=== PATIENT | female | born 1940 | race Caucasian/White ===

== ENCOUNTER 2017-01-10 12:55 | Inpatient (IN) | payer MEDICARE ==
[~2017-01-10] VITALS: Ht 157.5 cm; Wt 75.6 kg
[~2017-01-10 12:55] MED LIST: SODIUM CHLORIDE 0.9% 1,000 ML IV ONE
[2017-01-10] MEDS ORDERED: PLEASE ENTER ALLERGIES MC SCH ×2 (13:00)
[2017-01-10] MEDS ORDERED: SODIUM CHLORIDE FLUSH 10ML SYR IVF ONE (13:00)
[2017-01-10] MEDS ORDERED: PLEASE ENTER HEIGHT AND WEIGHT MC SCH (13:00)
[2017-01-10] MEDS ORDERED: ONDANSETRON 2MG/ML, 2ML IVPush ONE ×2 (13:00→14:30)
[2017-01-10] MEDS ORDERED: HYDROmorphone 1 MG/ML, 1ML ONE ×5 (13:01→18:11)
[2017-01-10] MEDS ORDERED: ONDANSETRON 2MG/ML, 2ML ONE ×3 (13:01→20:19)
[2017-01-10] MEDS: HYDROmorphone 1 MG/ML, 1ML IVPush PRN ×4 (13:07→17:34)
[2017-01-10] MEDS ORDERED: HYDR25TA6 PO (13:16)
[2017-01-10] MEDS ORDERED: RANI300C PO (13:16)
[2017-01-10] MEDS ORDERED: SULI150T PO (13:16)
[2017-01-10] MEDS ORDERED: SIMV20TA3 PO (13:16)
[2017-01-10] MEDS ORDERED: NEBI20TA2 PO (13:16)
[2017-01-10 13:24] LABS: ASPARTATE AMINO TRANSFERASE 16 U/L (15-37); BLOOD UREA NITROGEN 12 mg/dL (7-18)
[2017-01-10] MEDS ORDERED: OMNIPAQUE 350 MG/ML, 100ML BOTTLE ONE (14:08)
[2017-01-10] MEDS ORDERED: CEFOTETAN PMX 1GM/50ML 50 ML ONE (14:17)
[2017-01-10] MEDS ORDERED: CEFOTETAN PMX 1GM/50ML 50 ML IV ONE (14:30)
[2017-01-10] MEDS ORDERED: POTASSIUM CHLORIDE 20 MEQ in D5%-0.45% NACL 1,000 ML IV ONE (14:39)
[2017-01-10] MEDS ORDERED: METRONIDAZOLE PMX 500MG/100ML 100 ML IV ONE (15:00)
[2017-01-10] MEDS ORDERED: MORPHINE SULFATE 4 MG/ML, 1ML IVPush PRN (15:00)
[2017-01-10] MEDS ORDERED: METRONIDAZOLE PMX 500MG/100ML 100 ML ONE (15:12)
[2017-01-10 17:05] LABS: PATH.CAST-FLAG NOT PRESENT; SPERM-FLAG NOT PRESENT; SRC-FLAG NOT PRESENT; XTAL-FLAG NOT PRESENT; YLC-FLAG NOT PRESENT
[2017-01-10] MEDS ORDERED: HYDROmorphone 1 MG/ML, 1ML IVPush ONE (17:30)
[2017-01-10] MEDS ORDERED: HYDROmorphone 1 MG/ML, 1ML IV ONE (20:00)
[2017-01-10] MEDS ORDERED: BUPIVACAINE/PF 0.5% ONE (20:04)
[2017-01-10] MEDS ORDERED: CEFOTETAN 1 GM ONE (20:19)
[2017-01-10] MEDS ORDERED: DEXAMETHASONE 4 MG/ML, 1ML ONE (20:19)
[2017-01-10] MEDS ORDERED: SUCCINYLCHOLINE 20 MG/ML, 10ML ONE (20:19)
[2017-01-10] MEDS ORDERED: PROPOFOL 10 MG/ML, 20ML ONE (20:19)
[2017-01-10] MEDS ORDERED: LABETALOL 5MG/ML, 20ML ONE (20:19)
[2017-01-10] MEDS ORDERED: FENTANYL PF 100 MCG/2ML ONE (20:25)
[2017-01-10] MEDS ORDERED: BUPIVACAINE/PF 0.5% INJ ONE (20:38)
[2017-01-10] MEDS ORDERED: hydrALAzine 20 MG/ML, 1ML IV PRN (21:00)
[2017-01-10] MEDS ORDERED: HYDROmorphone 1 MG/ML, 1ML IV PRN (21:00)
[2017-01-10] MEDS ORDERED: FENTANYL PF 100 MCG/2ML IV PRN (21:00)
[2017-01-10] MEDS ORDERED: SIMVASTATIN 20 MG TABLET PO SCH (21:00)
[2017-01-10] MEDS ORDERED: FAMOTIDINE 40 MG TABLET PO SCH (21:00)
[2017-01-10] MEDS ORDERED: LABETALOL 5MG/ML, 20ML IV PRN (21:00)
[2017-01-10] MEDS ORDERED: OXYcodone 5 MG/5 ML ORAL.SOL UDC PO PRN (21:00)
[2017-01-10] MEDS ORDERED: ONDANSETRON 2MG/ML, 2ML IVPush PRN ×2 (21:00→22:30)
[2017-01-10] MEDS ORDERED: DIPHENHYDRAMINE 25 MG CAPSULE PO PRN (22:30)
[2017-01-10] MEDS ORDERED: METRONIDAZOLE PMX 500MG/100ML 100 ML IV SCH (22:30)
[2017-01-10] MEDS ORDERED: LORazepam 1MG TABLET PO PRN (22:30)
[2017-01-10] MEDS ORDERED: DIPHENHYDRAMINE 50 MG/ML, 1ML IV PRN (22:30)
[2017-01-10] MEDS ORDERED: POTASSIUM CHLORIDE 20 MEQ in D5%-0.45% NACL 1,000 ML IV SCH (22:30)
[2017-01-10] MEDS ORDERED: LORazepam 2 MG/ML, 1ML IV PRN (22:30)
[2017-01-10] MEDS ORDERED: PROPOFOL 100 ML IV ONE (22:44)
[2017-01-10] MEDS ORDERED: PIPERACILLIN/TAZO 3.375 GM in SODIUM CHLORIDE 0.9% 50 ML IV SCH (23:00)
[2017-01-10] MEDS ORDERED: PROPOFOL 100 ML IV PRN (23:22)
[2017-01-10] MEDS ORDERED: LIDOCAINE-MPF 1%, 2ML ENDO PRN (23:30)
[2017-01-10] MEDS ORDERED: PHARMACY MAY ADJ FOR RENAL FX MC SCH (23:30)
[2017-01-10] MEDS: NS + 20MEQ KCL 1,000 ML IV SCH (23:36)
[2017-01-10 23:52] LABS: ABG COLLECTION SITE LEFT RADIAL; COLLATERAL CIRCULATION TESTING NORMAL
[2017-01-10] MEDS: NOREPINEPHRINE 4 MG in SODIUM CHLORIDE 0.9% 246 ML IV PRN (23:53)
[2017-01-11] MEDS: PIPERACILLIN/TAZO 3.375 GM in SODIUM CHLORIDE 0.9% 50 ML IV SCH ×5 (00:24→22:16)
[2017-01-11 04:00] VITALS: BP 90/51
[2017-01-11] MEDS: FENTANYL PF 100 MCG/2ML IVPush PRN ×5 (04:14→15:04)
[2017-01-11 04:29] LABS: ABG COLLECTION SITE RIGHT BRACHIAL
[2017-01-11 05:31] LABS: BLOOD UREA NITROGEN 14 mg/dL (7-18)
[2017-01-11 05:35] LABS: ASPARTATE AMINO TRANSFERASE 14 U/L (15-37)
[2017-01-11] MEDS: NEBIVOLOL HCL 5 MG TABLET PO SCH (06:09)
[2017-01-11] MEDS: NOREPINEPHRINE 4 MG in SODIUM CHLORIDE 0.9% 246 ML IV PRN ×3 (06:44→20:53)
[2017-01-11] MEDS ORDERED: MAGNESIUM SULFATE PMX 4GM/100M 100 ML IV ONE (07:00)
[2017-01-11] MEDS ORDERED: HYDROCHLOROTHIAZIDE 25 MG TABLET PO SCH (09:00)
[2017-01-11] MEDS ORDERED: POTASSIUM CHLORIDE 20 MEQ TAB.ER.PRT PO SCH (09:00)
[2017-01-11] MEDS: SULINDAC 150 MG PO SCH ×2 (10:20→19:48)
[2017-01-11] MEDS: FAMOTIDINE 20 MG/2 ML IVPush SCH ×2 (10:21→19:48)
[2017-01-11] MEDS: POTASSIUM CHLORIDE 10% 40 MEQ/30 ML UDC PO SCH ×2 (10:39→19:48)
[2017-01-11] MEDS: NS + 20MEQ KCL 1,000 ML IV SCH ×2 (12:47→22:16)
[2017-01-11] MEDS: ENOXAPARIN 40 MG/0.4 ML SQ SCH (12:50)
[2017-01-11] MEDS: OXYcodone 5 MG/5 ML ORAL.SOL UDC PO PRN ×2 (15:04→19:48)
[2017-01-12] MEDS: FENTANYL PF 100 MCG/2ML IVPush PRN (00:14)
[2017-01-12] MEDS ORDERED: SODIUM CHLORIDE 0.9% 1,000ML IVBOLUS ONE (01:30)
[2017-01-12] MEDS: PIPERACILLIN/TAZO 3.375 GM in SODIUM CHLORIDE 0.9% 50 ML IV SCH ×4 (03:57→22:32)
[2017-01-12 04:00] VITALS: BP 116/58
[2017-01-12] MEDS: NOREPINEPHRINE 4 MG in SODIUM CHLORIDE 0.9% 246 ML IV PRN (04:07)
[2017-01-12 04:39] LABS: ABG COLLECTION SITE RIGHT RADIAL; COLLATERAL CIRCULATION TESTING NORMAL
[2017-01-12] MEDS: NS + 20MEQ KCL 1,000 ML IV SCH ×4 (05:13→22:33)
[2017-01-12] MEDS: NEBIVOLOL HCL 5 MG TABLET PO SCH (05:13)
[2017-01-12 05:22] LABS: BLOOD UREA NITROGEN 20 mg/dL (7-18)
[2017-01-12] MEDS: OXYcodone 5 MG/5 ML ORAL.SOL UDC PO PRN ×2 (05:25→14:22)
[2017-01-12 06:12] LABS: DIFF TOTAL CELLS COUNTED 100 CELL DIFF
[2017-01-12 06:18] LABS: VERIFY COUNTS? YES
[2017-01-12] MEDS: SULINDAC 150 MG PO SCH ×2 (10:59→20:43)
[2017-01-12] MEDS: ENOXAPARIN 40 MG/0.4 ML SQ SCH (10:59)
[2017-01-12] MEDS: FAMOTIDINE 20 MG/2 ML IVPush SCH ×2 (11:00→20:42)
[2017-01-13 03:21] LABS: ABG COLLECTION SITE RIGHT RADIAL
[2017-01-13 03:22] LABS: COLLATERAL CIRCULATION TESTING NORMAL
[2017-01-13] MEDS: PIPERACILLIN/TAZO 3.375 GM in SODIUM CHLORIDE 0.9% 50 ML IV SCH ×3 (04:34→17:23)
[2017-01-13 04:44] VITALS: BP 105/70
[2017-01-13] MEDS: NEBIVOLOL HCL 5 MG TABLET PO SCH (05:44)
[2017-01-13] MEDS: NS + 20MEQ KCL 1,000 ML IV SCH (06:45)
[2017-01-13 07:40] LABS: BLOOD UREA NITROGEN 24 mg/dL (7-18)
[2017-01-13 07:59] LABS: DIFF TOTAL CELLS COUNTED 100 CELL DIFF
[2017-01-13 08:06] LABS: MONOS WITH VACUOLES 1+; VERIFY COUNTS? YES
[2017-01-13] MEDS ORDERED: ALBUMIN HUMAN 25% 100 ML IV ONE (09:00)
[2017-01-13] MEDS: SULINDAC 150 MG PO SCH ×2 (09:20→21:00)
[2017-01-13] MEDS ORDERED: FUROSEMIDE 20 MG/2 ML IV ONE (10:30)
[2017-01-13] MEDS: OXYcodone 5 MG/5 ML ORAL.SOL UDC PO PRN ×3 (10:36→22:18)
[2017-01-13 13:32] VITALS: BP 129/81
[2017-01-13] MEDS: ENOXAPARIN 40 MG/0.4 ML SQ SCH (13:54)
[2017-01-13 18:55] VITALS: BP 124/76
[2017-01-13] MEDS: PIPERACILLIN/TAZO 3.375 GM in SODIUM CHLORIDE 0.9% 100 ML IV SCH (20:54)
[2017-01-14] MEDS: PIPERACILLIN/TAZO 3.375 GM in SODIUM CHLORIDE 0.9% 100 ML IV SCH ×2 (03:30→10:14)
[2017-01-14 03:49] VITALS: BP 136/71
[2017-01-14] MEDS: NEBIVOLOL HCL 5 MG TABLET PO SCH (05:15)
[2017-01-14] MEDS: OXYcodone 5 MG/5 ML ORAL.SOL UDC PO PRN ×4 (05:33→21:59)
[2017-01-14 07:04] VITALS: BP 135/82
[2017-01-14] MEDS: SULINDAC 150 MG PO SCH ×2 (09:00→21:00)
[2017-01-14] MEDS ORDERED: CALCIUM CARBONATE 500 MG TAB.CHEW PO PRN (11:30)
[2017-01-14 13:51] VITALS: BP 125/77
[2017-01-14] MEDS: ENOXAPARIN 40 MG/0.4 ML SQ SCH (14:44)
[2017-01-14] MEDS: PIPERACILLIN/TAZO 3.375 GM in SODIUM CHLORIDE 0.9% 50 ML IV SCH ×2 (16:03→21:59)
[2017-01-14 19:05] VITALS: BP 131/78
[2017-01-15 01:22] VITALS: BP 133/79
[2017-01-15] MEDS: PIPERACILLIN/TAZO 3.375 GM in SODIUM CHLORIDE 0.9% 50 ML IV SCH ×4 (03:30→21:25)
[2017-01-15] MEDS: OXYcodone 5 MG/5 ML ORAL.SOL UDC PO PRN ×4 (05:42→20:20)
[2017-01-15] MEDS: NEBIVOLOL HCL 5 MG TABLET PO SCH (05:44)
[2017-01-15 05:46] VITALS: BP 136/77
[2017-01-15 05:55] LABS: BLOOD UREA NITROGEN 19 mg/dL (7-18)
[2017-01-15 06:14] LABS: DIFF TOTAL CELLS COUNTED 100 CELL DIFF
[2017-01-15 06:16] LABS: VERIFY COUNTS? YES
[2017-01-15 06:17] LABS: LARGE PLATELETS 1+
[2017-01-15 07:45] VITALS: BP 148/72
[2017-01-15] MEDS: SULINDAC 150 MG PO SCH ×2 (09:05→20:20)
[2017-01-15] MEDS ORDERED: OXYC5SOL8 PO (12:56)
[2017-01-15] MEDS ORDERED: PIPE3.375 IV (12:56)
[2017-01-15] MEDS ORDERED: LORA2VIA4 IV (12:56)
[2017-01-15] MEDS ORDERED: CALC200T24 PO (12:56)
[2017-01-15] MEDS ORDERED: ONDA4VIA4 IVPush (12:56)
[2017-01-15] MEDS ORDERED: HYDR20VI3 IV (12:56)
[2017-01-15] MEDS ORDERED: ENOX40SY4 SQ (12:56)
[2017-01-15 13:17] VITALS: BP 143/75
[2017-01-15] MEDS ORDERED: POTASSIUM CHLORIDE 20 MEQ TAB.ER.PRT PO ONE (14:00)
[2017-01-15] MEDS: ENOXAPARIN 40 MG/0.4 ML SQ SCH (14:13)
[2017-01-15 19:28] VITALS: BP 145/83
[2017-01-16 01:32] VITALS: BP 133/68
[2017-01-16] MEDS: PIPERACILLIN/TAZO 3.375 GM in SODIUM CHLORIDE 0.9% 50 ML IV SCH ×4 (03:14→22:09)
[2017-01-16] MEDS: OXYcodone 5 MG/5 ML ORAL.SOL UDC PO PRN ×3 (03:26→22:10)
[2017-01-16] MEDS: NEBIVOLOL HCL 5 MG TABLET PO SCH (06:00)
[2017-01-16 07:10] VITALS: BP 134/79
[2017-01-16] MEDS: SULINDAC 150 MG PO SCH ×2 (08:01→21:00)
[2017-01-16] MEDS: POLYETHYLENE GLYCOL 17 GM PACKET PO SCH (13:33)
[2017-01-16] MEDS: ENOXAPARIN 40 MG/0.4 ML SQ SCH (13:37)
[2017-01-16 14:16] VITALS: BP 135/82
[2017-01-16 19:03] VITALS: BP 141/86
[2017-01-17 01:54] VITALS: BP 136/74
[2017-01-17] MEDS: OXYcodone 5 MG/5 ML ORAL.SOL UDC PO PRN ×3 (03:01→15:43)
[2017-01-17] MEDS: PIPERACILLIN/TAZO 3.375 GM in SODIUM CHLORIDE 0.9% 50 ML IV SCH ×4 (03:08→21:58)
[2017-01-17] MEDS: NEBIVOLOL HCL 5 MG TABLET PO SCH (06:00)
[2017-01-17 06:35] VITALS: BP 145/81
[2017-01-17] MEDS: POLYETHYLENE GLYCOL 17 GM PACKET PO SCH (08:32)
[2017-01-17] MEDS: SULINDAC 150 MG PO SCH ×2 (08:33→21:58)
[2017-01-17] MEDS ORDERED: POTASSIUM CHLORIDE 40 MEQ in SODIUM CHLORIDE 0.9% 500 ML IV ONE (09:30)
[2017-01-17] MEDS ORDERED: metroNIDAZOLE 50 MG/ML ORAL.SUSP PO SCH (09:30)
[2017-01-17] MEDS ORDERED: metroNIDAZOLE 500 MG TABLET PO SCH (09:33)
[2017-01-17] MEDS: LACTOBACILLUS 1GM/ PACKET PO SCH ×3 (10:40→21:58)
[2017-01-17] MEDS ORDERED: MAGNESIUM SULFATE PMX 4GM/100M 100 ML IV ONE (12:30)
[2017-01-17] MEDS ORDERED: POTASSIUM PHOSPHATE 22 MEQ in SODIUM CHLORIDE 0.9% 500 ML IV ONE (12:30)
[2017-01-17 14:44] VITALS: BP 141/81
[2017-01-17] MEDS: ENOXAPARIN 40 MG/0.4 ML SQ SCH (15:30)
[2017-01-17 20:57] VITALS: BP 141/67
[2017-01-18] MEDS: OXYcodone 5 MG/5 ML ORAL.SOL UDC PO PRN ×3 (01:26→22:07)
[2017-01-18 02:34] VITALS: BP 146/82
[2017-01-18] MEDS: PIPERACILLIN/TAZO 3.375 GM in SODIUM CHLORIDE 0.9% 50 ML IV SCH ×4 (04:15→22:08)
[2017-01-18 04:52] LABS: BLOOD UREA NITROGEN 6 mg/dL (7-18)
[2017-01-18] MEDS: NEBIVOLOL HCL 5 MG TABLET PO SCH (06:23)
[2017-01-18 08:20] VITALS: BP 142/83
[2017-01-18] MEDS: POLYETHYLENE GLYCOL 17 GM PACKET PO SCH (09:00)
[2017-01-18] MEDS: LACTOBACILLUS 1GM/ PACKET PO SCH ×3 (09:00→20:11)
[2017-01-18] MEDS: SULINDAC 150 MG PO SCH ×2 (09:01→20:12)
[2017-01-18] MEDS ORDERED: OMNIPAQUE 350 MG/ML, 100ML BOTTLE ONE (09:49)
[2017-01-18] MEDS ORDERED: POTASSIUM CHLORIDE 40 MEQ in SODIUM CHLORIDE 0.9% 500 ML IV ONE (12:30)
[2017-01-18 12:40] VITALS: BP 137/78
[2017-01-18] MEDS ORDERED: MIDAZOLAM 1 MG/ML, 5ML ONE (14:46)
[2017-01-18] MEDS ORDERED: NALOXONE 1 MG/ML, 2ML ONE (14:47)
[2017-01-18] MEDS ORDERED: FENTANYL PF 100 MCG/2ML ONE (14:47)
[2017-01-18] MEDS ORDERED: FLUMAZENIL 0.1 MG/1 ML, 5ML ONE (14:47)
[2017-01-18] MEDS ORDERED: LIDOCAINE 2%, 20ML ONE (15:19)
[2017-01-18 19:38] VITALS: BP 135/85
[2017-01-18] MEDS: ENOXAPARIN 40 MG/0.4 ML SQ SCH (20:11)
[2017-01-19 00:10] VITALS: BP 129/69
[2017-01-19] MEDS: PIPERACILLIN/TAZO 3.375 GM in SODIUM CHLORIDE 0.9% 50 ML IV SCH ×4 (03:57→22:05)
[2017-01-19 04:16] VITALS: BP 135/76
[2017-01-19 05:50] LABS: BLOOD UREA NITROGEN 5 mg/dL (7-18)
[2017-01-19] MEDS: NEBIVOLOL HCL 5 MG TABLET PO SCH (06:00)
[2017-01-19] MEDS: OXYcodone 5 MG/5 ML ORAL.SOL UDC PO PRN ×3 (06:49→20:31)
[2017-01-19 07:10] VITALS: BP 135/77
[2017-01-19] MEDS: LACTOBACILLUS 1GM/ PACKET PO SCH ×3 (08:29→20:30)
[2017-01-19] MEDS: SULINDAC 150 MG PO SCH ×2 (08:33→20:31)
[2017-01-19] MEDS: POLYETHYLENE GLYCOL 17 GM PACKET PO SCH (08:44)
[2017-01-19 13:35] VITALS: BP 125/74
[2017-01-19] MEDS ORDERED: POTASSIUM CHLORIDE 40 MEQ in SODIUM CHLORIDE 0.9% 100 ML IV SCH (15:30)
[2017-01-19] MEDS: POTASSIUM CHLORIDE 80 MEQ in SODIUM CHLORIDE 0.9% 1,000 ML IV SCH (16:24)
[2017-01-19] MEDS: ENOXAPARIN 40 MG/0.4 ML SQ SCH (20:30)
[2017-01-19 22:30] VITALS: BP 133/77
[2017-01-20] MEDS: POTASSIUM CHLORIDE 80 MEQ in SODIUM CHLORIDE 0.9% 1,000 ML IV SCH
[2017-01-20 02:49] VITALS: BP 132/77
[2017-01-20] MEDS: PIPERACILLIN/TAZO 3.375 GM in SODIUM CHLORIDE 0.9% 50 ML IV SCH ×4 (03:55→21:24)
[2017-01-20] MEDS: NEBIVOLOL HCL 5 MG TABLET PO SCH (05:55)
[2017-01-20 08:31] VITALS: BP 126/79
[2017-01-20] MEDS: POLYETHYLENE GLYCOL 17 GM PACKET PO SCH (10:02)
[2017-01-20] MEDS: LACTOBACILLUS 1GM/ PACKET PO SCH ×3 (10:02→20:31)
[2017-01-20] MEDS: SULINDAC 150 MG PO SCH ×2 (10:03→20:31)
[2017-01-20] MEDS: OXYcodone 5 MG/5 ML ORAL.SOL UDC PO PRN ×3 (10:10→20:31)
[2017-01-20 14:45] VITALS: BP 125/76
[2017-01-20 19:46] VITALS: BP 137/74
[2017-01-20] MEDS: ENOXAPARIN 40 MG/0.4 ML SQ SCH (20:31)
[2017-01-21 02:18] VITALS: BP 128/78
[2017-01-21] MEDS: PIPERACILLIN/TAZO 3.375 GM in SODIUM CHLORIDE 0.9% 50 ML IV SCH ×4 (03:30→21:49)
[2017-01-21] MEDS: OXYcodone 5 MG/5 ML ORAL.SOL UDC PO PRN ×2 (05:27→16:34)
[2017-01-21] MEDS: NEBIVOLOL HCL 5 MG TABLET PO SCH (05:27)
[2017-01-21 06:21] LABS: BLOOD UREA NITROGEN 5 mg/dL (7-18)
[2017-01-21 08:10] VITALS: BP 130/72
[2017-01-21] MEDS: LACTOBACILLUS 1GM/ PACKET PO SCH ×3 (08:17→21:00)
[2017-01-21] MEDS: SULINDAC 150 MG PO SCH ×2 (08:17→21:00)
[2017-01-21] MEDS: POLYETHYLENE GLYCOL 17 GM PACKET PO SCH (08:17)
[2017-01-21] MEDS ORDERED: POTASSIUM CHLORIDE 80 MEQ in SODIUM CHLORIDE 0.9% 1,000 ML IV ONE (12:30)
[2017-01-21 13:28] VITALS: BP 123/80
[2017-01-21 19:05] VITALS: BP 131/77
[2017-01-21] MEDS: ENOXAPARIN 40 MG/0.4 ML SQ SCH (21:49)
[2017-01-22] MEDS: OXYcodone 5 MG/5 ML ORAL.SOL UDC PO PRN (01:54)
[2017-01-22 02:11] VITALS: BP 151/77
[2017-01-22] MEDS: PIPERACILLIN/TAZO 3.375 GM in SODIUM CHLORIDE 0.9% 50 ML IV SCH ×2 (03:40→09:40)
[2017-01-22] MEDS: NEBIVOLOL HCL 5 MG TABLET PO SCH (06:36)
[2017-01-22 07:02] VITALS: BP 134/84
[2017-01-22 07:09] LABS: BLOOD UREA NITROGEN 6 mg/dL (7-18)
[2017-01-22] MEDS: POLYETHYLENE GLYCOL 17 GM PACKET PO SCH (08:41)
[2017-01-22] MEDS: LACTOBACILLUS 1GM/ PACKET PO SCH (08:45)
[2017-01-22] MEDS: SULINDAC 150 MG PO SCH (08:45)
[2017-01-22] MEDS ORDERED: LACT1CAP24 PO (11:14)
[2017-01-22] MEDS ORDERED: PIPE3.375 IV (11:14)
[2017-01-22] MEDS ORDERED: TRAM50TA2 PO (12:19)
[2017-01-22 12:37] VITALS: BP 131/82
== END 2017-01-22 12:55 | DRG 853 ==
LOC: ED 13:27 → EDIP 14:39 → 4NOR 18:22 → CCU 21:59 → 4NOR 01-13 11:17
PROVIDERS: ADMIT Surgery; ATTEND Surgery
PROC: 0DTJ4ZZ Resection of Appendix, Percutaneous Endoscopic Approach (ICD-10-PCS; principal; 2017-01-10 19:45)
PROC: 5A1945Z Respiratory Ventilation, 24-96 Consecutive Hours (ICD-10-PCS; 2017-01-11)
PROC: 0BH17EZ Insertion of Endotracheal Airway into Trachea, Via Natural or Artificial Opening (ICD-10-PCS; 2017-01-11)
PROC: 02HV33Z Insertion of Infusion Device into Superior Vena Cava, Percutaneous Approach (ICD-10-PCS; 2017-01-15)
PROC: B5181ZA Fluoroscopy of Superior Vena Cava using Low Osmolar Contrast, Guidance (ICD-10-PCS; 2017-01-15)
DX: A41.9 Sepsis, unspecified organism (principal); J96.90 Respiratory failure, unspecified, unspecified whether with hypoxia or hypercapnia; K35.3 Acute appendicitis with localized peritonitis; E43 Unspecified severe protein-calorie malnutrition; J69.0 Pneumonitis due to inhalation of food and vomit; K57.80 Diverticulitis of intestine, part unspecified, with perforation and abscess without bleeding; Z99.11 Dependence on respirator [ventilator] status; Z99.81 Dependence on supplemental oxygen; E78.00 Pure hypercholesterolemia, unspecified; E78.5 Hyperlipidemia, unspecified; E87.6 Hypokalemia; I10 Essential (primary) hypertension; M19.90 Unspecified osteoarthritis, unspecified site; Z68.30 Body mass index [BMI] 30.0-30.9, adult
CPT/HCPCS: 36415; 36569; 36600; 49405; 49406; 71010; 74177; 76937; 77001; 80048; 80053; 81001; 82803; 83690; 83735; 84100; 84478; 85025; 85610; 87070; 87077; 87081; 87086; 87186; 87205; 87324; 88304; 93005; 94002; 94003; 94150; 96361; 96365; 96366; 96368; 96375; 96376; 99156; 99157; C1894; J1100; J1170; J1650; J2250; J2405; J2543; J2704; J3010; J3480; J3490; P9047; Q9967; C1729; C1751; C1769; J0330; J1940; J2310; J3475; J7030; J7040; J7050; S0028; S0074

== ENCOUNTER → 2018-12-26 | Outpatient (CLI) | payer MEDICARE ==
[~2018-12-26] MED LIST changes: +CALC1CAP8 PO; +CALC200T24 PO; +ENOX40SY4 SQ; +HYDR20VI3 IV; +HYDR25TA6 PO; +LACT1CAP24 PO; +LORA2VIA6 IV; +MULT-658 PO; +NEBI20TA2 PO; +ONDA4VIA60 IVPush; +OXYC5SOL8 PO; +PIPE3.375 IV; +RANI300C PO; +SIMV20TA3 PO; +SIMV40TA3 PO; -SODIUM CHLORIDE 0.9% 1,000 ML IV ONE; +SULI150T PO; +TRAM50TA2 PO
[2018-12-26 10:42] LABS: MICROSCOPIC AUTO
[2018-12-26 10:55] LABS: ALANINE AMINOTRANSFERASE 26 U/L (12-78); ALBUMIN 3.9 g/dL (3.4-5.0); ANION GAP 6 mmol/L (5-15); CALCIUM 9.9 mg/dL (8.5-10.1); CHLORIDE 103 mmol/L (98-107); CREATININE 0.85 mg/dL (0.55-1.02)
[2018-12-26 10:56] LABS: CULTURE INDICATED? YES
[2018-12-26 10:57] LABS: ALKALINE PHOSPHATASE 62 U/L (45-117); BASOPHILS # (AUTO) 0.03 x10^3/uL (0-0.1); BASOPHILS % (AUTO) 1 % (0-1); EOSINOPHILS # (AUTO) 0.26 x10^3/uL (0-0.4); EOSINOPHILS % (AUTO) 4 % (1-7); LYMPHOCYTES # (AUTO) 1.61 x10^3/uL (1-3.4); LYMPHOCYTES % (AUTO) 26 % (22-44); MD NO; MEAN CORPUSCULAR HGB CONC 34.6 g/dL (32.4-35.8); MEAN CORPUSCULAR VOLUME 95.4 fL (80-100); MEAN PLATELET VOLUME 8.7 fL (7.4-10.4); MONOCYTES # (AUTO) 0.57 x10^3/uL (0.2-0.8); MONOCYTES % (AUTO) 9 % (2-9); NEUTROPHILS # (AUTO) 3.72 x10^3/uL (1.8-6.8); NEUTROPHILS % (AUTO) 60 % (42-75); PLATELET COUNT 208 x10^3/uL (130-400); RED BLOOD COUNT 4.56 x10^6/uL (3.82-5.3); TOTAL PROTEIN 7.4 g/dL (6.4-8.2)
== END | disposition home or self-care (01) ==
LOC: STAR 09:18
PROVIDERS: ATTEND Orthopaedic Surgery
DX: Z01.818 Encounter for other preprocedural examination (principal); R94.31 Abnormal electrocardiogram [ECG] [EKG]; M17.32 Unilateral post-traumatic osteoarthritis, left knee; M17.31 Unilateral post-traumatic osteoarthritis, right knee; I10 Essential (primary) hypertension; Z79.899 Other long term (current) drug therapy
CPT/HCPCS: 36415; 80053; 81001; 85025; 87081; 87086; 87806; 93005; G0475

== ENCOUNTER 2019-01-05 07:03 | Observation (INO) | payer MEDICARE ==
[~2019-01-05] VITALS: Ht 160 cm; Wt 71.2 kg
[~2019-01-05 07:03] MED LIST changes: +BACITRACIN 50,000 UNIT ONE; +EPINEPHRINE 1 MG/ML, 1ML ONE; +KETOROLAC 60 MG/2 ML ONE; +ROPIvacaine/PF 0.2%, 20 ML ONE; +SODIUM CHLORIDE 0.9% 50 ML ONE; +TRANEXAMIC ACID 100 MG/ML, 10ML ONE; +morphine SULFATE/PF 1 MG/ML, 10ML ONE
[2019-01-05] MEDS ORDERED: LACTATED RINGERS 1,000 ML IV SCH (07:16)
[2019-01-05] MEDS ORDERED: VANCOMYCIN PMX 1GM/200ML 200 ML IV STA (07:18)
[2019-01-05] MEDS ORDERED: GABAPENTIN 300 MG CAPSULE PO ONE (07:30)
[2019-01-05] MEDS ORDERED: ACETAMINOPHEN 500 MG TABLET PO ONE (07:30)
[2019-01-05 07:38] VITALS: BP 146/84
[2019-01-05] MEDS ORDERED: FENTANYL PF 250 MCG/5ML ONE ×2 (10:13→11:54)
[2019-01-05] MEDS ORDERED: ROPIvacaine/PF 0.2%, 20 ML ONE (10:17)
[2019-01-05] MEDS ORDERED: ONDANSETRON 2MG/ML, 2ML ONE (10:18)
[2019-01-05] MEDS ORDERED: ROCURONIUM 10MG/ML,5ML ONE (10:18)
[2019-01-05] MEDS ORDERED: CEFAZOLIN 1,000 MG ONE (10:18)
[2019-01-05] MEDS ORDERED: DEXAMETHASONE 4 MG/ML, 1ML ONE (10:18)
[2019-01-05] MEDS ORDERED: GLYCOPYRROLATE 0.2MG/1ML, 5ML ONE (10:18)
[2019-01-05] MEDS ORDERED: NEOSTIGMINE 1 MG/ML, 10ML ONE (10:18)
[2019-01-05] MEDS ORDERED: PROPOFOL 10 MG/ML, 20ML ONE (10:18)
[2019-01-05] MEDS: D5%-0.45% NACL 1,000 ML IV SCH ×2 (11:12→20:15)
[2019-01-05] MEDS ORDERED: PHENYLEPHRINE 10 MG/ML ONE (11:22)
[2019-01-05] MEDS ORDERED: PROMETHAZINE 25 MG/ML, 1ML IV PRN (11:30)
[2019-01-05] MEDS ORDERED: ONDANSETRON ODT 8 MG PO PRN (11:30)
[2019-01-05] MEDS ORDERED: PROMETHAZINE 12.5 MG SUPP PR PRN (11:30)
[2019-01-05] MEDS ORDERED: morphine SULFATE 10 MG/ML, 1ML IVPush PRN (11:30)
[2019-01-05] MEDS ORDERED: VANCOMYCIN PMX 1GM/200ML 200 ML IVPB ONE (11:30)
[2019-01-05] MEDS ORDERED: MORPHINE SULFATE 4 MG/ML, 1ML IVPush PRN (11:30)
[2019-01-05] MEDS ORDERED: DIPHENHYDRAMINE 50 MG CAPSULE PO PRN (11:30)
[2019-01-05] MEDS ORDERED: HYDROmorphone 2 MG/ML, 1ML IVPush PRN (11:30)
[2019-01-05] MEDS ORDERED: LABETALOL 5MG/ML, 20ML IV PRN (11:30)
[2019-01-05] MEDS ORDERED: TRANEXAMIC ACID 1,000 MG in SODIUM CHLORIDE 0.9% 100 ML IV ONE ×2 (11:30→16:30)
[2019-01-05] MEDS ORDERED: ACETAMINOPHEN 325 MG TABLET PO PRN (11:30)
[2019-01-05] MEDS ORDERED: hydrALAzine 20 MG/ML, 1ML IV PRN (11:30)
[2019-01-05] MEDS ORDERED: PROMETHAZINE 25 MG SUPP PR PRN (11:30)
[2019-01-05] MEDS ORDERED: PROMETHAZINE 25 MG/ML, 1ML IM PRN ×2 (11:30)
[2019-01-05] MEDS ORDERED: FENTANYL PF 100 MCG/2ML IV PRN (11:30)
[2019-01-05] MEDS ORDERED: ONDANSETRON 2MG/ML, 2ML IV PRN (11:30)
[2019-01-05] MEDS ORDERED: OXYcodone 5 MG/5 ML ORAL.SOL UDC PO PRN (11:30)
[2019-01-05] MEDS ORDERED: MEPERIDINE/PF 25MG/0.5ML IVPush PRN (11:30)
[2019-01-05] MEDS ORDERED: LORazepam 2 MG/ML, 1ML IVPush PRN (11:30)
[2019-01-05] MEDS ORDERED: ONDANSETRON 2MG/ML, 2ML IVPush PRN (11:30)
[2019-01-05] MEDS ORDERED: ZOLPIDEM 5MG TABLET PO PRN (11:30)
[2019-01-05] MEDS: OXYcodone/APAP 7.5/325MG TABLET PO PRN ×2 (14:57→20:19)
[2019-01-05] MEDS ORDERED: FAMOTIDINE 40 MG TABLET PO PRN (15:30)
[2019-01-05 19:18] VITALS: BP 118/67
[2019-01-05] MEDS: CEFAZOLIN PMX 2GM/50ML 50 ML IVPB SCH (20:15)
[2019-01-05] MEDS: CALCIUM/VITAMIN D3 250-125 TABLET PO SCH (20:19)
[2019-01-05] MEDS: SULINDAC 150 MG PO SCH (20:27)
[2019-01-05] MEDS ORDERED: SIMVASTATIN 40 MG TABLET PO SCH (21:00)
[2019-01-05 23:53] VITALS: BP 119/71
[2019-01-06] MEDS: D5%-0.45% NACL 1,000 ML IV SCH ×3 (01:40→11:00)
[2019-01-06] MEDS: OXYcodone/APAP 7.5/325MG TABLET PO PRN ×2 (01:43→11:15)
[2019-01-06] MEDS: CEFAZOLIN PMX 2GM/50ML 50 ML IVPB SCH ×2 (03:56→11:30)
[2019-01-06 04:10] VITALS: BP 102/65
[2019-01-06] MEDS ORDERED: NEBIVOLOL HCL 5 MG TABLET PO SCH (06:00)
[2019-01-06 07:42] VITALS: BP 100/64
[2019-01-06] MEDS: SULINDAC 150 MG PO SCH (08:26)
[2019-01-06] MEDS: CALCIUM/VITAMIN D3 250-125 TABLET PO SCH (08:26)
[2019-01-06] MEDS ORDERED: HYDROCHLOROTHIAZIDE 25 MG TABLET PO SCH (09:00)
[2019-01-06] MEDS ORDERED: MULTIVITAMIN 1 TABLET PO SCH (09:00)
[2019-01-06] MEDS ORDERED: VANCOMYCIN PMX 1GM/200ML 200 ML IV ONE (09:30)
[2019-01-06] MEDS ORDERED: ASPIRIN 325 MG TABLET EC PO SCH (17:00)
[2019-01-06] MEDS ORDERED: DOCUSATE 100 MG CAPSULE PO SCH (21:00)
== END 2019-01-06 12:00 | disposition home or self-care (01) ==
LOC: OUT 07:03 → 4NOR 14:30 → OUT 23:09 → 4NOR 23:09 → DCLOUNGE 01-06 11:35
PROVIDERS: ADMIT Orthopaedic Surgery; ATTEND Orthopaedic Surgery
DX: M17.12 Unilateral primary osteoarthritis, left knee (principal); M06.9 Rheumatoid arthritis, unspecified; E78.00 Pure hypercholesterolemia, unspecified; M81.0 Age-related osteoporosis without current pathological fracture; Z79.899 Other long term (current) drug therapy
CPT/HCPCS: 27447; 73564; 96365; 96366; 96367; 96375; 97110; 97161; 97165; C1713; C1776; G0378; J0171; J0690; J1100; J1885; J2274; J2370; J2405; J2704; J2710; J2795; J3010; J3370; J7120

== ENCOUNTER 2019-04-14 09:17 | Emergency (ER) | payer MEDICARE ==
[~2019-04-14] VITALS: Ht 160 cm; Wt 53.0 kg
[2019-04-14 13:28] VITALS: BP 145/79
== END 2019-04-14 14:51 | disposition home or self-care (01) ==
LOC: ED 11:29
DX: M47.896 Other spondylosis, lumbar region (principal); I10 Essential (primary) hypertension; E78.00 Pure hypercholesterolemia, unspecified; M19.90 Unspecified osteoarthritis, unspecified site
CPT/HCPCS: 36415; 72131; 74176; 80048; 81003; 82040; 85025; 99284; J2270

== ENCOUNTER 2019-04-15 10:20 | Inpatient (IN) | payer MEDICARE ==
[~2019-04-15] VITALS: Ht 160 cm; Wt 64.5 kg
[2019-04-17 13:38] VITALS: BP 107/64
== END 2019-04-17 16:15 | disposition home or self-care (01) | DRG 552 ==
LOC: ED 11:00 → EDIP 12:03 → 3NE 12:37 → DCLOUNGE 04-17 15:50
PROVIDERS: ADMIT Hospitalist; ATTEND Internal Medicine
DX: M48.061 Spinal stenosis, lumbar region without neurogenic claudication (principal); D72.829 Elevated white blood cell count, unspecified; E78.00 Pure hypercholesterolemia, unspecified; E78.5 Hyperlipidemia, unspecified; E87.6 Hypokalemia; F40.240 Claustrophobia; G89.29 Other chronic pain; I10 Essential (primary) hypertension; M12.9 Arthropathy, unspecified; M46.1 Sacroiliitis, not elsewhere classified; M54.16 Radiculopathy, lumbar region; Z96.652 Presence of left artificial knee joint
CPT/HCPCS: 36415; 72131; 74176; 80048; 81003; 82040; 83735; 85025; 85651; 99284; 99285; G0378; J1650; J1885; J2270; J7512

== ENCOUNTER → 2019-10-22 | Outpatient (CLI) | payer MEDICARE ==
[~2019-10-22] MED LIST changes: +ATORVASTATIN; -BACITRACIN 50,000 UNIT ONE; +CHOL200052 PO; -EPINEPHRINE 1 MG/ML, 1ML ONE; +FAMO-79 PO; +GABA300C PO; +GABA300C10 PO; -KETOROLAC 60 MG/2 ML ONE; +LIDO700A20 TD; +POTA20TA14 PO; +POTASSIUM; +PRED5TAB PO; -ROPIvacaine/PF 0.2%, 20 ML ONE; +SIMV20TA19 PO; -SIMV20TA3 PO; +SIMV40TA20 PO; -SIMV40TA3 PO; -SODIUM CHLORIDE 0.9% 50 ML ONE; -TRANEXAMIC ACID 100 MG/ML, 10ML ONE; +[UNRECOGNIZED DRUG - CODE]; -morphine SULFATE/PF 1 MG/ML, 10ML ONE
[2019-10-22 11:57] LABS: BASOPHILS # (AUTO) 0.04 x10^3/uL (0-0.1); BASOPHILS % (AUTO) 1 % (0-1); EOSINOPHILS % (AUTO) 7 % (1-7); LYMPHOCYTES # (AUTO) 1.56 x10^3/uL (1-3.4); LYMPHOCYTES % (AUTO) 25 % (22-44); MD NO; MEAN CORPUSCULAR HEMOGLOBIN 31.4 pg (27.0-34.8); MEAN CORPUSCULAR HGB CONC 33.4 g/dL (32.4-35.8); MEAN CORPUSCULAR VOLUME 93.9 fL (80-100); MONOCYTES # (AUTO) 0.64 x10^3/uL (0.2-0.8); MONOCYTES % (AUTO) 10 % (2-9); NEUTROPHILS # (AUTO) 3.52 x10^3/uL (1.8-6.8); NEUTROPHILS % (AUTO) 57 % (42-75); PLATELET COUNT 237 x10^3/uL (130-400); RED BLOOD COUNT 4.74 x10^6/uL (3.82-5.3); RED CELL DISTRIBUTION WIDTH 14.9 % (9.6-15.2)
[2019-10-22 12:02] LABS: ALBUMIN 3.5 g/dL (3.4-5.0); ANION GAP 6 mmol/L (5-15); CALCIUM 8.5 mg/dL (8.5-10.1); CHLORIDE 109 mmol/L (98-107)
[2019-10-22 12:05] LABS: ALANINE AMINOTRANSFERASE 23 U/L (12-78); ALKALINE PHOSPHATASE 84 U/L (45-117); BILIRUBIN,TOTAL 1.1 mg/dL (0.2-1.0); CREATININE 0.86 mg/dL (0.55-1.02); TOTAL PROTEIN 7.3 g/dL (6.4-8.2)
[2019-10-22 12:34] LABS: MICROSCOPIC INDICATED
[2019-10-22 12:37] LABS: CULTURE INDICATED? YES
== END | disposition home or self-care (01) ==
LOC: STAR 10:18
PROVIDERS: ATTEND Orthopaedic Surgery
DX: Z01.818 Encounter for other preprocedural examination (principal); M17.31 Unilateral post-traumatic osteoarthritis, right knee; M25.561 Pain in right knee
CPT/HCPCS: 36415; 80053; 81001; 85025; 87081; 87086; 87806; 93005; G0475